=== PATIENT | male | born 1960 | race Caucasian/White ===

== ENCOUNTER 2021-02-09 18:03 | Emergency (ER) | payer BC, SELFPAY ==
[~2021-02-09] VITALS: Ht 188 cm; Wt 98.4 kg
[2021-02-09 18:15] VITALS: BP_SYST 134
[2021-02-09] MEDS ORDERED: IPRATROPIUM BROM 0.5 MG/2.5 ML VIAL.NEB (ATROVENT) INH ONE (19:00)
[2021-02-09] MEDS ORDERED: LevALBUTEROL HCL 1.25 MG/0.5 ML *CONC.* VIAL.NEB (XOPENEX CONC.) INH ONE ×2 (19:00→21:15)
[2021-02-09] MEDS ORDERED: NACL 0.9% 1,000 ML IV ONE (19:00)
[2021-02-09 19:33] LABS: BASOPHILS % (AUTO) 0.2 % (0.0-2.0); HEMATOCRIT 43.8 % (36-54); HEMOGLOBIN 14.8 g/dL (14.0-18.0); LYMPHOCYTES # (AUTO) 0.4 K/uL (1.0-5.5); LYMPHOCYTES % (AUTO) 3.8 % (20.5-51.5); MEAN CORPUSCULAR HEMOGLOBIN 32 pg (27-31); MEAN CORPUSCULAR HGB CONC 34 % (32-36); MEAN CORPUSCULAR VOLUME 94 fL (79.0-98.0); MONOCYTES # (AUTO) 0.3 K/uL (0.0-1.0); MONOCYTES % (AUTO) 3.2 % (1.7-9.3); NEUTROPHILS # (AUTO) 8.5 K/uL (1.8-7.7); NEUTROPHILS % (AUTO) 92.8 % (40.0-70.0); PLATELET COUNT (AUTO) 179 K/uL (130-430); RED BLOOD CELL COUNT(AUTO) 4.67 MIL/uL (4.2-6.2); RED CELL DISTRIBUTION WIDTH 13.8 % (9.0-15.0); WHITE BLOOD COUNT (AUTO) 9.2 K/uL (4.8-10.8)
[2021-02-09 19:34] LABS: CALCIUM 8.7 mg/dL (8.4-11.0); CREATININE 1.07 mg/dL (0.55-1.30); POTASSIUM 3.8 mmol/L (3.5-5.1)
[2021-02-09 19:46] LABS: ALBUMIN 3.1 g/dL (3.4-4.8); TOTAL BILIRUBIN 0.5 mg/dL (0.0-1.0)
[2021-02-09 20:05] LABS: BILIRUBIN,URINE NEGATIVE (NEGATIVE); BLOOD, URINE NEGATIVE (NEGATIVE); CLARITY/URINE CLEAR (CLEAR); COLOR,URINE YELLOW (YELLOW); GLUCOSE,URINE NEGATIVE (NEGATIVE); KETONES,URINE TRACE (NEGATIVE); LEUKOCYTE ESTERASE ,URINE NEGATIVE (NEGATIVE); NITRITE, URINE NEGATIVE (NEGATIVE); PROTEIN URINE 1+ (NEGATIVE); UROBILINOGEN,URINE 0.2 (0.2-1.0)
[2021-02-09 20:59] LABS: BACTERIA,URINE FEW /HPF (None Seen); RBC,URINE NONE SEEN /HPF (0-3); WBC,URINE 0-3 /HPF (0-3)
[2021-02-09 21:00] LABS: MUCUS,URINE None Seen /LPF (None Seen)
[2021-02-09 22:45] VITALS: BP_SYST 147
== END 2021-02-09 22:46 | disposition home or self-care (01) ==
LOC: SED 18:03
DX: U07.1 COVID-19 (principal); R09.02 Hypoxemia; J44.9 Chronic obstructive pulmonary disease, unspecified; I10 Essential (primary) hypertension; Z87.891 Personal history of nicotine dependence
CPT/HCPCS: 36415; 36600; 71045; 80053; 81000; 83605; 82803; 85025; 87040; 87426; 93005; 94640; 96360; 99285; J7030; J7612

== ENCOUNTER 2021-02-12 06:20 | Inpatient (IN) | payer BC, SELFPAY ==
[~2021-02-12] VITALS: Ht 188 cm; Wt 95.3 kg
[2021-02-12 06:45] VITALS: BP_SYST 132
[2021-02-12 07:33] LABS: BASOPHILS % (AUTO) 0.3 % (0.0-2.0); EOSINOPHILS # (AUTO) 0.1 K/uL (0.0-0.4); EOSINOPHILS % (AUTO) 1.4 % (0.0-4.0); HEMATOCRIT 41.6 % (36-54); HEMOGLOBIN 14.1 g/dL (14.0-18.0); LYMPHOCYTES # (AUTO) 0.9 K/uL (1.0-5.5); LYMPHOCYTES % (AUTO) 9.2 % (20.5-51.5); MEAN CORPUSCULAR HEMOGLOBIN 32 pg (27-31); MEAN CORPUSCULAR HGB CONC 34 % (32-36); MEAN CORPUSCULAR VOLUME 94 fL (79.0-98.0); MONOCYTES # (AUTO) 0.4 K/uL (0.0-1.0); NEUTROPHILS # (AUTO) 8.5 K/uL (1.8-7.7); NEUTROPHILS % (AUTO) 85.1 % (40.0-70.0); PLATELET COUNT (AUTO) 278 K/uL (130-430); RED BLOOD CELL COUNT(AUTO) 4.43 MIL/uL (4.2-6.2); RED CELL DISTRIBUTION WIDTH 13.7 % (9.0-15.0)
[2021-02-12 07:37] LABS: CALCIUM 8.5 mg/dL (8.4-11.0); CREATININE 0.88 mg/dL (0.55-1.30); POTASSIUM 3.5 mmol/L (3.5-5.1)
[2021-02-12 07:41] LABS: INR 0.9 (0.80-1.20); PROTHROMBIN TIME 9.8 SECS (9.5-12.5)
[2021-02-12] MEDS ORDERED: LevALBUTEROL HCL 1.25 MG/0.5 ML *CONC.* VIAL.NEB (XOPENEX CONC.) INH ONE (07:45)
[2021-02-12 07:52] LABS: ALBUMIN 2.7 g/dL (3.4-4.8); TOTAL BILIRUBIN 0.5 mg/dL (0.0-1.0)
[2021-02-12 08:04] LABS: C-REACTIVE PROTEIN QUANT 8.2 mg/dL (0-0.5)
[2021-02-12] MEDS ORDERED: AZITHROMYCIN 500 MG in NS 250 ML IV ONE (08:30)
[2021-02-12] MEDS ORDERED: AZITHROMYCIN 500 MG/VIAL (ZITHROMAX) IV ONE (08:30)
[2021-02-12] MEDS ORDERED: ENOXAPARIN SODIUM 100 MG/ML SYRINGE SUBCUT ONE (09:30)
[2021-02-12] MEDS ORDERED: ACETAMINOPHEN 500 MG TABLET PO PRN ×2 (09:30→15:45)
[2021-02-12] MEDS ORDERED: LISI10TA29 PO (09:52)
[2021-02-12] MEDS ORDERED: ASPI-1155 PO (09:52)
[2021-02-12] MEDS ORDERED: ALPR0.5T8 PO (09:52)
[2021-02-12] MEDS ORDERED: BUDE10.7 (09:52)
[2021-02-12] MEDS ORDERED: ALBMDI INH (09:52)
[2021-02-12] MEDS ORDERED: ZIT250 PO (09:52)
[2021-02-12] MEDS ORDERED: ATEN-41 PO (09:52)
[2021-02-12 11:52] VITALS: BP_SYST 149
[2021-02-12 12:10] VITALS: BP_SYST 149
[2021-02-12] MEDS ORDERED: IBUP-1969 PO (13:42)
[2021-02-12] MEDS ORDERED: ALBUTEROL MDI INHALATION 8 GM INH INH PRN (13:45)
[2021-02-12] MEDS ORDERED: LISINOPRIL 10 MG TABLET (PRINIVIL) PO ONE (14:15)
[2021-02-12] MEDS ORDERED: ATENOLOL 25 MG TABLET(TENORMIN) PO ONE (14:15)
[2021-02-12] MEDS ORDERED: AZITHROMYCIN 250 MG TABLET PO ONE (14:15)
[2021-02-12] MEDS ORDERED: ASPIRIN 81 MG TAB.CHEW PO ONE (14:15)
[2021-02-12] MEDS ORDERED: ALBUTEROL SULFATE 0.083% 2.5 MG/3 ML VIAL.NEB INH ONE (14:30)
[2021-02-12] MEDS: ALPRAZolam 0.25 MG TABLET PO PRN ×2 (15:01→20:42)
[2021-02-12] MEDS: IBUPROFEN 600 MG TABLET PO PRN ×2 (15:14→22:52)
[2021-02-12 15:50] VITALS: BP_SYST 149
[2021-02-12 16:21] VITALS: BP_SYST 148
[2021-02-12] MEDS ORDERED: COMMUNICATION ORDER XX ONE (18:45)
[2021-02-12] MEDS ORDERED: *LOVENOX 1MG/KG Q12H/PHARMACY XX ONE ×2 (19:15→19:30)
[2021-02-12] MEDS: ALBUTEROL SULFATE 0.083% 2.5 MG/3 ML VIAL.NEB INH SCH (19:36)
[2021-02-12] MEDS: BUDESONIDE 0.5 MG/2 ML AMPUL.NEB INH SCH (19:36)
[2021-02-12 20:00] VITALS: BP_SYST 123
[2021-02-12] MEDS ORDERED: DEXAMETHASONE SOD PHOSPHATE 10 MG/ML VIAL IVP ONE (20:00)
[2021-02-12] MEDS ORDERED: IOHEXOL 350 mgI/mL, 150 ML INFUS..BTL IV ONE (20:58)
[2021-02-12] MEDS ORDERED: BUDESONIDE/FORMOTEROL 160-4.5 mCg, 6 GM INHALER INH SCH (21:00)
[2021-02-13 00:45] VITALS: BP_SYST 132
[2021-02-13] MEDS: ALBUTEROL SULFATE 0.083% 2.5 MG/3 ML VIAL.NEB INH SCH ×4 (01:00→19:53)
[2021-02-13] MEDS: BUDESONIDE 0.5 MG/2 ML AMPUL.NEB INH SCH ×2 (07:26→19:53)
[2021-02-13 07:38] LABS: ALBUMIN 2.4 g/dL (3.4-4.8); BILIRUBIN,DIRECT 0.2 mg/dL (0.0-0.3); TOTAL BILIRUBIN 0.5 mg/dL (0.0-1.0)
[2021-02-13] MEDS: LISINOPRIL 10 MG TABLET (PRINIVIL) PO SCH (08:28)
[2021-02-13] MEDS: IBUPROFEN 600 MG TABLET PO PRN ×3 (08:28→21:28)
[2021-02-13] MEDS: ASPIRIN 81 MG TAB.CHEW PO SCH (08:29)
[2021-02-13] MEDS: AZITHROMYCIN 250 MG TABLET PO SCH (08:29)
[2021-02-13] MEDS: ATENOLOL 25 MG TABLET(TENORMIN) PO SCH (08:29)
[2021-02-13] MEDS ORDERED: cefTRIAXone 1 GM in D5W 50 ML IV SCH (09:00)
[2021-02-13] MEDS ORDERED: ENOXAPARIN SODIUM 100 MG/ML SYRINGE SUBCUT SCH (09:00)
[2021-02-13] MEDS: ENOXAPARIN SODIUM 40 MG/0.4 ML SYRINGE SUBCUT SCH (10:06)
[2021-02-13 10:07] LABS: C-REACTIVE PROTEIN QUANT 19.5 mg/dL (0-0.5)
[2021-02-13] MEDS: ALPRAZolam 0.25 MG TABLET PO PRN ×2 (10:07→19:45)
[2021-02-13 12:25] VITALS: BP_SYST 141
[2021-02-13] MEDS ORDERED: ASCORBIC ACID 500 MG TABLET PO ONE ×2 (13:00→13:45)
[2021-02-13] MEDS ORDERED: CHOLECALCIFEROL (VITAMIN D3) 5,000 UNIT TABLET PO ONE (14:00)
[2021-02-13] MEDS ORDERED: BARICITINIB -Non-Formulary 2 MG TABLET PO ONE (14:30)
[2021-02-13 16:57] VITALS: BP_SYST 135
[2021-02-13] MEDS: DEXAMETHASONE SOD PHOSPHATE 10 MG/ML VIAL IVP SCH (19:44)
[2021-02-13 20:00] VITALS: BP_SYST 149
[2021-02-14] VITALS: BP_SYST 145
[2021-02-14] MEDS: ALBUTEROL SULFATE 0.083% 2.5 MG/3 ML VIAL.NEB INH SCH ×2 (01:00→08:08)
[2021-02-14] MEDS: IBUPROFEN 600 MG TABLET PO PRN ×2 (05:45→18:03)
[2021-02-14 07:06] LABS: ALBUMIN 2.3 g/dL (3.4-4.8); BILIRUBIN,DIRECT 0.1 mg/dL (0.0-0.3); CALCIUM 8.4 mg/dL (8.4-11.0); CREATININE 0.76 mg/dL (0.55-1.30); TOTAL BILIRUBIN 0.3 mg/dL (0.0-1.0)
[2021-02-14 07:38] LABS: C-REACTIVE PROTEIN QUANT 10.1 mg/dL (0-0.5)
[2021-02-14 08:00] VITALS: BP_SYST 135
[2021-02-14] MEDS: BUDESONIDE 0.5 MG/2 ML AMPUL.NEB INH SCH (08:08)
[2021-02-14] MEDS ORDERED: ASCORBIC ACID 500 MG TABLET PO SCH (09:00)
[2021-02-14] MEDS: cefTRIAXone 1 GM in D5W 50 ML IV SCH (09:04)
[2021-02-14] MEDS: ENOXAPARIN SODIUM 40 MG/0.4 ML SYRINGE SUBCUT SCH (09:06)
[2021-02-14] MEDS: ALPRAZolam 0.25 MG TABLET PO PRN ×2 (09:07→20:15)
[2021-02-14] MEDS: ATENOLOL 25 MG TABLET(TENORMIN) PO SCH (09:08)
[2021-02-14] MEDS: LISINOPRIL 10 MG TABLET (PRINIVIL) PO SCH (09:09)
[2021-02-14] MEDS: ASPIRIN 81 MG TAB.CHEW PO SCH (09:09)
[2021-02-14] MEDS: ASCORBIC ACID 500 MG TABLET PO SCH (09:10)
[2021-02-14] MEDS: AZITHROMYCIN 250 MG TABLET PO SCH (09:10)
[2021-02-14] MEDS: CHOLECALCIFEROL (VITAMIN D3) 5,000 UNIT TABLET PO SCH (09:12)
[2021-02-14] MEDS: BARICITINIB -Non-Formulary 2 MG TABLET PO SCH (09:13)
[2021-02-14] MEDS ORDERED: ALBUTEROL MDI INHALATION 8 GM INH INH SCH (11:00)
[2021-02-14 12:00] VITALS: BP_SYST 123
[2021-02-14 20:00] VITALS: BP_SYST 124
[2021-02-14] MEDS: DEXAMETHASONE SOD PHOSPHATE 10 MG/ML VIAL IVP SCH (20:15)
[2021-02-15] VITALS: BP_SYST 127
[2021-02-15 07:23] LABS: ALBUMIN 2.4 g/dL (3.4-4.8); BILIRUBIN,DIRECT 0.1 mg/dL (0.0-0.3); CALCIUM 8.7 mg/dL (8.4-11.0); CREATININE 0.81 mg/dL (0.55-1.30); POTASSIUM 4.4 mmol/L (3.5-5.1); TOTAL BILIRUBIN 0.3 mg/dL (0.0-1.0)
[2021-02-15 08:30] VITALS: BP_SYST 129
[2021-02-15 09:14] LABS: C-REACTIVE PROTEIN QUANT 4.2 mg/dL (0-0.5)
[2021-02-15] MEDS: CHOLECALCIFEROL (VITAMIN D3) 5,000 UNIT TABLET PO SCH (09:41)
[2021-02-15] MEDS: ASCORBIC ACID 500 MG TABLET PO SCH (09:42)
[2021-02-15] MEDS: ALPRAZolam 0.25 MG TABLET PO PRN ×2 (09:42→21:28)
[2021-02-15] MEDS: cefTRIAXone 1 GM in D5W 50 ML IV SCH (09:42)
[2021-02-15] MEDS: ENOXAPARIN SODIUM 40 MG/0.4 ML SYRINGE SUBCUT SCH (09:45)
[2021-02-15] MEDS: LISINOPRIL 10 MG TABLET (PRINIVIL) PO SCH (09:46)
[2021-02-15] MEDS: AZITHROMYCIN 250 MG TABLET PO SCH (09:51)
[2021-02-15] MEDS: ASPIRIN 81 MG TAB.CHEW PO SCH (09:51)
[2021-02-15] MEDS: ATENOLOL 25 MG TABLET(TENORMIN) PO SCH (09:51)
[2021-02-15] MEDS: BARICITINIB -Non-Formulary 2 MG TABLET PO SCH (09:52)
[2021-02-15 10:03] LABS: EOSINOPHILS % (AUTO) 0.1 % (0.0-4.0); HEMATOCRIT 38.6 % (36-54); HEMOGLOBIN 13.2 g/dL (14.0-18.0); LYMPHOCYTES % (AUTO) 5.3 % (20.5-51.5); MEAN CORPUSCULAR HEMOGLOBIN 32 pg (27-31); MEAN CORPUSCULAR HGB CONC 34 % (32-36); MEAN CORPUSCULAR VOLUME 95 fL (79.0-98.0); MONOCYTES % (AUTO) 2.5 % (1.7-9.3); NEUTROPHILS % (AUTO) 91.6 % (40.0-70.0); PLATELET COUNT (AUTO) 386 K/uL (130-430); RED BLOOD CELL COUNT(AUTO) 4.07 MIL/uL (4.2-6.2); WHITE BLOOD COUNT (AUTO) 13.2 K/uL (4.8-10.8)
[2021-02-15 10:04] LABS: BASOPHILS # (AUTO) 0.1 K/uL (0.0-0.2); BASOPHILS % (AUTO) 0.5 % (0.0-2.0); LYMPHOCYTES # (AUTO) 0.7 K/uL (1.0-5.5); MONOCYTES # (AUTO) 0.3 K/uL (0.0-1.0); NEUTROPHILS # (AUTO) 12.1 K/uL (1.8-7.7)
[2021-02-15 16:00] VITALS: BP_SYST 125
[2021-02-15 20:00] VITALS: BP_SYST 126
[2021-02-15] MEDS: DEXAMETHASONE SOD PHOSPHATE 10 MG/ML VIAL IVP SCH (20:22)
[2021-02-16] VITALS: BP_SYST 122
[2021-02-16 08:30] VITALS: BP_SYST 125
[2021-02-16] MEDS: ENOXAPARIN SODIUM 40 MG/0.4 ML SYRINGE SUBCUT SCH (09:00)
[2021-02-16] MEDS: ASPIRIN 81 MG TAB.CHEW PO SCH (09:08)
[2021-02-16] MEDS: AZITHROMYCIN 250 MG TABLET PO SCH (09:09)
[2021-02-16] MEDS: LISINOPRIL 10 MG TABLET (PRINIVIL) PO SCH (09:09)
[2021-02-16] MEDS: ASCORBIC ACID 500 MG TABLET PO SCH (09:10)
[2021-02-16] MEDS: ATENOLOL 25 MG TABLET(TENORMIN) PO SCH (09:10)
[2021-02-16] MEDS: CHOLECALCIFEROL (VITAMIN D3) 5,000 UNIT TABLET PO SCH (09:12)
[2021-02-16] MEDS: cefTRIAXone 1 GM in D5W 50 ML IV SCH (09:12)
[2021-02-16] MEDS: BARICITINIB -Non-Formulary 2 MG TABLET PO SCH (09:13)
[2021-02-16 10:03] LABS: ALBUMIN 2.3 g/dL (3.4-4.8); BILIRUBIN,DIRECT 0.1 mg/dL (0.0-0.3); C-REACTIVE PROTEIN QUANT 2.2 mg/dL (0-0.5); CALCIUM 8.3 mg/dL (8.4-11.0); CREATININE 0.97 mg/dL (0.55-1.30); POTASSIUM 4.4 mmol/L (3.5-5.1); TOTAL BILIRUBIN 0.4 mg/dL (0.0-1.0)
[2021-02-16 12:16] VITALS: BP_SYST 141
[2021-02-16 16:05] VITALS: BP_SYST 120
[2021-02-16] MEDS: REMDESIVIR 100 MG in NS 250 ML IV SCH (17:49)
[2021-02-16 20:00] VITALS: BP_SYST 127
[2021-02-16] MEDS: DEXAMETHASONE SOD PHOSPHATE 10 MG/ML VIAL IVP SCH (20:16)
[2021-02-16] MEDS: ALPRAZolam 0.25 MG TABLET PO PRN (20:26)
[2021-02-17] VITALS: BP_SYST 140
[2021-02-17 07:40] LABS: ALBUMIN 2.2 g/dL (3.4-4.8); CALCIUM 8.2 mg/dL (8.4-11.0); CREATININE 0.91 mg/dL (0.55-1.30); POTASSIUM 4.3 mmol/L (3.5-5.1); TOTAL BILIRUBIN 0.3 mg/dL (0.0-1.0)
[2021-02-17 08:00] VITALS: BP_SYST 123
[2021-02-17] MEDS: ASPIRIN 81 MG TAB.CHEW PO SCH (08:23)
[2021-02-17] MEDS: ASCORBIC ACID 500 MG TABLET PO SCH (08:24)
[2021-02-17] MEDS: AZITHROMYCIN 250 MG TABLET PO SCH (08:24)
[2021-02-17] MEDS: ATENOLOL 25 MG TABLET(TENORMIN) PO SCH (08:25)
[2021-02-17] MEDS: LISINOPRIL 10 MG TABLET (PRINIVIL) PO SCH (08:25)
[2021-02-17] MEDS: ENOXAPARIN SODIUM 40 MG/0.4 ML SYRINGE SUBCUT SCH (08:26)
[2021-02-17] MEDS: CHOLECALCIFEROL (VITAMIN D3) 5,000 UNIT TABLET PO SCH (08:27)
[2021-02-17] MEDS: BARICITINIB -Non-Formulary 2 MG TABLET PO SCH (08:28)
[2021-02-17] MEDS: cefTRIAXone 1 GM in D5W 50 ML IV SCH (08:29)
[2021-02-17 12:00] VITALS: BP_SYST 128
[2021-02-17] MEDS: REMDESIVIR 100 MG in NS 250 ML IV SCH (17:09)
[2021-02-17 17:24] VITALS: BP_SYST 130
[2021-02-17 20:00] VITALS: BP_SYST 121
[2021-02-17] MEDS: DEXAMETHASONE SOD PHOSPHATE 10 MG/ML VIAL IVP SCH (21:00)
[2021-02-17] MEDS: ALPRAZolam 0.25 MG TABLET PO PRN (21:00)
[2021-02-18 00:16] VITALS: BP_SYST 116
[2021-02-18 07:56] LABS: ALBUMIN 2.3 g/dL (3.4-4.8); CALCIUM 8.1 mg/dL (8.4-11.0); CREATININE 1.06 mg/dL (0.55-1.30); POTASSIUM 4.4 mmol/L (3.5-5.1); TOTAL BILIRUBIN 0.3 mg/dL (0.0-1.0)
[2021-02-18 08:00] VITALS: BP_SYST 134
[2021-02-18] MEDS: ASPIRIN 81 MG TAB.CHEW PO SCH (08:24)
[2021-02-18] MEDS: CHOLECALCIFEROL (VITAMIN D3) 5,000 UNIT TABLET PO SCH (08:24)
[2021-02-18] MEDS: LISINOPRIL 10 MG TABLET (PRINIVIL) PO SCH (08:25)
[2021-02-18] MEDS: ASCORBIC ACID 500 MG TABLET PO SCH (08:25)
[2021-02-18] MEDS: ATENOLOL 25 MG TABLET(TENORMIN) PO SCH (08:25)
[2021-02-18] MEDS: cefTRIAXone 1 GM in D5W 50 ML IV SCH (08:26)
[2021-02-18] MEDS: BARICITINIB -Non-Formulary 2 MG TABLET PO SCH (08:26)
[2021-02-18] MEDS: ENOXAPARIN SODIUM 40 MG/0.4 ML SYRINGE SUBCUT SCH (08:36)
[2021-02-18 12:02] VITALS: BP_SYST 122
[2021-02-18] MEDS: ALPRAZolam 0.25 MG TABLET PO PRN (13:52)
[2021-02-18 14:13] VITALS: BP_SYST 127
== END 2021-02-18 15:25 | disposition home or self-care (01) | DRG 177 ==
LOC: SED 06:20 → STU 09:28
PROVIDERS: ADMIT Family Medicine; ATTEND Family Medicine
PROC: XW033E5 Introduction of Remdesivir Anti-infective into Peripheral Vein, Percutaneous Approach, New Technology Group 5 (ICD-10-PCS; principal; 2021-02-15)
DX: U07.1 COVID-19 (principal); J12.82 Pneumonia due to coronavirus disease 2019; J96.01 Acute respiratory failure with hypoxia; E43 Unspecified severe protein-calorie malnutrition; J44.0 Chronic obstructive pulmonary disease with (acute) lower respiratory infection; D68.59 Other primary thrombophilia; D72.810 Lymphocytopenia; Z87.891 Personal history of nicotine dependence; E66.9 Obesity, unspecified; I10 Essential (primary) hypertension; F41.9 Anxiety disorder, unspecified; R74.01 Elevation of levels of liver transaminase levels
CPT/HCPCS: 36415; 36600; 71045; 71275; 76376; 80048; 80053; 80076; 82550; 82728; 82803-TC; 83605; 83615; 83880; 84484; 85025; 85379; 85384; 85610-TC; 85651-TC; 85730-TC; 86140; 86886; 86900; 86901; 87040-TC; 93005; 93306; 93970; 94640; 94760; 96365; 96372; 99285; G0378; J0456; J0696; J1100; J1650; J7050; J7060; J7612; J7613; J7626; Q0144; Q9967; U0003